=== PATIENT | male | born 1970 | race Caucasian/White ===

== ENCOUNTER 2016-09-23 10:15 | Emergency (ER) | payer OTHER ==
--- NOTE | 2016-09-23 11:33 | UC ---
Abdominal Pain Male HPI - HPI Summary HPI Summary: complaint of diarrhea and abdominal pain 09/16 had a sore throat and headache-09/17 seen by PCP- started antibiotic for otitis media- took 2days worth then stopped 09/17/16 started to have cramping and abdominal pain diarrhea that started on 09/17- frequent episodes 6-8x day not able to eat -drinking fluids and then immediately has to defect and has severe cramping bright yellow stool-denies blood in stool feels constantly nauseated but no vomiting at this time extremely sharp pains throughout his abdomen -RUQ pain after eating and drinking feels feverish and has chills sometimes denies dysuria - History of Current Complaint Chief Complaint: UCGeneralIllness Stated Complaint: DIARRHEA,STOMACH ACHE 6 DAYS Time Seen by Provider: 09/23/16 11:22 Hx Obtained From: Patient - Allergies/Home Medications Allergies/Adverse Reactions: Allergies Allergy/AdvReac Type Severity Reaction Status Date / Time Acetaminophen AdvReac See Comment Verified 09/23/16 11:19 Home Medications: Home Medications Unknown Antibiotic 1 tab PO BID 09/23/16 [History Confirmed 09/23/16] PMH/Surg Hx/FS Hx/Imm Hx Previously Healthy: Yes Cardiovascular History Of: Denies: Congestive Heart Failure Respiratory History Of: Comment Only: COPD - "borderline" GI/ History Of: Denies: Renal Disease - Surgical History Surgical History: None - Family History Known Family History: Positive: None, Diabetes - mother Negative: Cardiac Disease, Hypertension - Social History Occupation: Employed Full-time Lives: With Family Alcohol Use: Occasionally Substance Use Type: None Smoking Status (MU): Former Smoker Type: Cigarettes Amount Used/How Often: 3-4 ppd Length of Time of Smoking/Using Tobacco: 30 yrs When Did the Patient Quit Smoking/Using Tobacco: 7 YRS AGO Review of Systems Constitutional: Fever, Chills, Fatigue Skin: Negative Eyes: Negative ENT: Negative Respiratory: Negative Cardiovascular: Negative Gastrointestinal: Abdominal Pain, Diarrhea Genitourinary: Negative Motor: Negative Neurovascular: Negative Musculoskeletal: Negative Neurological: Negative Psychological: Negative All Other Systems Reviewed And Are Negative: Yes Physical Exam Triage Information Reviewed: Yes Appearance: Ill-Appearing, Pain Distress, Obese Vital Signs: Initial Vital Signs Temp 98.4 F 09/23/16 11:13 Pulse 66 09/23/16 11:13 Resp 18 09/23/16 11:13 BP 125/75 09/23/16 11:13 Pulse Ox 97 09/23/16 11:13 Vital Signs Reviewed: Yes Eyes: Positive: Conjunctiva Clear ENT: Positive: Pharyngeal erythema, TMs normal. Negative: Nasal congestion Neck: Positive: No Lymphadenopathy Respiratory: Positive: Lungs clear, Normal breath sounds, No respiratory distress, No accessory muscle use Cardiovascular: Positive: RRR, No Murmur, Pulses Normal Abdomen Description: Positive: No Organomegaly, Distended, Other: - RUQ tenderness. Negative: CVA Tenderness (R), CVA Tenderness (L), Guarding Bowel Sounds: Positive: Hyperactive Musculoskeletal Exam: Normal Neurological: Positive: Alert Psychological Exam: Normal Skin Exam: Normal Abd Pain Male Course/Dx - Course Course Of Treatment: exam completed. d/t acute abdominal pain, fever and cills , 6 days of diarrhea, will send to higher level of evaluation and care in the emergency department - Differential Dx/Clinical Impression Differential Diagnosis/HQI/PQRI: Gall Bladder Disease, Pancreatitis, Other - diarrhea, c-difficile Provider Diagnoses: RUQ pain, diarrhea - Physician Notification/Consults Discussed Patient Care With: Dr Martino Time Discussed With Above Provider: 11:51 Discharge - Discharge Plan Condition: Stable Disposition: TRANS HIGHER LVL OF CARE FAC
[2016-09-23 11:52] VITALS: BP 132/88
== END 2016-09-23 11:50 | disposition left against medical advice (07) ==
LOC: UCCORT 10:15
DX: R19.7 Diarrhea, unspecified (principal); R10.11 Right upper quadrant pain; Z88.6 Allergy status to analgesic agent
CPT/HCPCS: 99212; G0463

== ENCOUNTER 2016-12-23 09:29 | Emergency (ER) | payer OTHER ==
--- NOTE | 2016-12-23 11:03 | RAD ---
INDICATION: Fall. Rib pain COMPARISON: None TECHNIQUE: Multiple views of the left and right ribs were obtained. FINDINGS: Bones: There is no evidence of acute rib fracture. LUNGS: The lungs are clear. There is no pneumothorax. Pleural spaces: There is no evidence of hemothorax. Other: None IMPRESSION: NO EVIDENCE OF ACUTE RIB FRACTURE
[2016-12-23] MEDS ORDERED: Iohexol 300* (CONTRAST) 10 ML SDV IV ONE (12:09)
--- NOTE | 2016-12-23 13:52 | RAD ---
Indication: Fall on chest wall running. CT of the chest, abdomen and pelvis was performed after oral and IV contrast administration. Inferior thyroid lobes are unremarkable. Small 3 to 5 mm right peritracheal and AP window lymph nodes are noted. No hilar adenopathy is noted. The heart demonstrates no pericardial effusion. The trachea and major bronchi appear patent. The lung salazar demonstrate no evidence of pleural fluid, nodules or masses. No pneumothorax is noted. CT of the abdomen and pelvis demonstrates liver to be normal in size. It is diffusely decreased in density consistent with hepatic steatosis. The gallbladder demonstrates no calcified gallstones. No pericholecystic fluid or wall thickening is identified. The pancreas demonstrates no mass or pancreatic duct dilatation. The spleen is normal in size. Multiple perisplenic collaterals are noted. The possibility of portal hypertension should BE considered. No retroperitoneal or pelvic lymphadenopathy. Urinary bladder is partially collapsed. No free fluid is identified. No pelvic adenopathy. No hernias are noted. The bony structures are unremarkable. IMPRESSION: No free fluid is identified. Hepatic steatosis. Multiple perisplenic collaterals are noted. The possibility of portal hypertension should BE considered. Specifically no rib injury is identified.
[2016-12-23 14:26] VITALS: BP 129/80
--- NOTE | 2017-01-11 12:37 | UC ---
Minor Trauma HPI - HPI Summary HPI Summary: pt fell while running 3 days ago. no severe immediate pain. however, pain became much worse over the days that followed. currently pain is severe at the edges of his sternum. - History of Current Complaint Chief Complaint: UCUpperExtremity Stated Complaint: RIB PAIN-FALL Time Seen by Provider: 12/23/16 10:33 Hx Obtained From: Patient Onset/Duration: Sudden Onset, Lasting Days - 2, Still Present, Worse Since - progressively Severity Initially: Mild Severity Currently: Severe Pain Intensity: 8 Pain Scale Used: 0-10 Numeric Mechanism Of Injury: Blunt Trauma, Fall From A Standing Position Aggravating Factor(s): Coughing, Deep Breaths, Movement Alleviating Factor(s): Nothing Associated Signs And Symptoms: Negative: Loss Of Consciousness, Ecchymosis, Swelling - Allergies/Home Medications Allergies/Adverse Reactions: Allergies Allergy/AdvReac Type Severity Reaction Status Date / Time Acetaminophen AdvReac See Comment Verified 12/23/16 09:59 Home Medications: Home Medications Omeprazole CAP* [Prilosec CAP* 20 MG] 1 tab PO DAILY 12/23/16 [History Confirmed 12/23/16] PMH/Surg Hx/FS Hx/Imm Hx Respiratory History: COPD - Surgical History Surgical History: None - Family History Known Family History: Positive: None, Diabetes - mother Negative: Cardiac Disease, Hypertension - Social History Occupation: Employed Full-time Lives: With Family Alcohol Use: Occasionally Substance Use Type: None Smoking Status (MU): Former Smoker Type: Cigarettes Amount Used/How Often: 3-4 ppd Length of Time of Smoking/Using Tobacco: 30 yrs When Did the Patient Quit Smoking/Using Tobacco: 7 YRS AGO Review of Systems Constitutional: Negative Skin: Negative Eyes: Negative ENT: Negative Respiratory: Negative Cardiovascular: Chest Pain - pleuritc chest wall pain Gastrointestinal: Other - pain over inferior thoracic boarders Genitourinary: Negative Motor: Negative Musculoskeletal: Other: - chest wall pain Neurological: Negative All Other Systems Reviewed And Are Negative: Yes Physical Exam Triage Information Reviewed: Yes Appearance: Well-Appearing, Pain Distress - mod, Obese Vital Signs: Initial Vital Signs Temp 98.3 F 12/23/16 09:55 Pulse 79 12/23/16 09:55 Resp 18 12/23/16 09:55 BP 146/73 12/23/16 09:55 Pulse Ox 98 12/23/16 09:55 Vital Signs Reviewed: Yes Eyes: Positive: Conjunctiva Clear. Negative: Discharge ENT: Positive: Hearing grossly normal. Negative: Muffled/hoarse voice Neck: Positive: Supple, Nontender Respiratory: Positive: Lungs clear, Normal breath sounds, No respiratory distress, No accessory muscle use, Other: - avoiding deep breathing Cardiovascular: Positive: RRR, No Murmur Abdomen Description: Negative: Nontender - tender along costophrnic boarders over spleen, epigastrum Bowel Sounds: Positive: Present Musculoskeletal Exam: Normal Musculoskeletal: Positive: Other: - tender to palpation over all anterior rib Neurological Exam: Normal Neurological: Positive: Alert, Muscle Tone Normal Psychological: Positive: Normal Response To Family, Age Appropriate Behavior Skin Exam: Normal Diagnostics - Radiology No standard instances Xray Interpretation: No Acute Changes - rib xray, ct chest/abd/pelvis(fatty liver seen) Radiology Interpretation Completed By: Radiologist - EKG Cardiac Rhythm: Sinus: Normal Ectopy: None ST Segment: Normal Minor Trauma Course/Dx - Course Course Of Treatment: Htn noted. Elevated bp likely d/t pt current condition - Differential Dx/Diagnosis Differential Diagnosis/HQI/PQRI: Contusion(s), Fracture, Hematoma(s), Laceration (s), Sprain Provider Diagnoses: blaunt chest trauma, constochondritis, elevated bp without dx of htn Discharge - Discharge Plan Condition: Stable Disposition: HOME Prescriptions: Naproxen TAB* [Naprosyn 250 mg TAB*] 500 mg PO BID PRN #20 tab PRN Reason: Pain oxyCODONE TAB* [Roxycodone TAB 5 mg*] 5 mg PO Q6H PRN #14 tab MDD 4 tabs PRN Reason: Pain Patient Education Materials: Costochondritis (ED), Blunt Chest Trauma (ED) Referrals: Non Staff,Doctor [Primary Care Provider] - Additional Instructions: ORAL NARCOTIC MEDICATION: You have been given a prescription for pain control. This medication is a narcotic. It's best taken with food, as nausea can result if taken on an empty stomach. Don't operate machinery or drive within six hours of taking this medication. Do not combine this medicine with alcohol, or with any medication which can cause sedation (such as cold tablets or sleeping pills) unless you get permission from the physician. Narcotics tend to cause constipation. If possible, drink plenty of fluids and eat a diet high in fiber and fruits. ANTI-INFLAMMATORY MEDICATION: You have received a prescription for an antiinflammatory agent. This is an excellent, safe drug for pain control. In addition, it has potent antiinflammatory effects which are beneficial, especially in the treatment of injuries, arthritis, or tendonitis. It's best to take this medicine with food. Persons with ulcer disease or allergy to aspirin should notify their physician of this before taking this drug. Take the medication exactly as prescribed. Don't take additional doses unless instructed to do so by your doctor. If you develop wheezing, shortness of breath, hives, faintness, stomach pain, vomiting, or dark black stools, return for re-evaluation at once. FOLLOW UP IT IS IMPORTANT THAT YOU FOLLOW UP WITH YOUR PCP BY THE END OF THE WEEK.
== END 2016-12-23 14:41 | disposition home or self-care (01) ==
LOC: UCCORT 09:29
DX: S29.8XXA Other specified injuries of thorax, initial encounter (principal); W18.30XA Fall on same level, unspecified, initial encounter; Y93.02 Activity, running; Y92.9 Unspecified place or not applicable; M94.0 Chondrocostal junction syndrome [Tietze]; R03.0 Elevated blood-pressure reading, without diagnosis of hypertension; J44.9 Chronic obstructive pulmonary disease, unspecified; E66.9 Obesity, unspecified; Z88.6 Allergy status to analgesic agent; Z87.891 Personal history of nicotine dependence
CPT/HCPCS: 71110; 71260; 74177; 93005; 99212; G0463; Q9967

== ENCOUNTER 2017-03-05 11:05 | Emergency (ER) | payer OTHER | END 2017-03-05 12:27 | disposition left against medical advice (07) | LOC: UCCORT 11:05 | DX: M54.9 Dorsalgia, unspecified (principal) ==

== ENCOUNTER 2017-07-27 13:04 | Emergency (ER) | payer OTHER ==
[2017-07-27 14:48] VITALS: BP 140/94
--- NOTE | 2017-07-27 14:50 | UC ---
UC General HPI - HPI Summary HPI Summary: PT IS C/O PAIN TO THE TOP MID TO OUTER R FOOT X 1 WEEK. THIS AM IT IS MUCH WORSE. HE NOTES IT IS PINK AND SWOLLEN. [place] HX INJURY AND GOUT. DID DRINK "A COUPLE OF BEERS LAST PM WHICH HE HAD NOT DONE IN THE PAST WEEK. NO OTHER JOINT COMPLAINTS. - History of Current Complaint Stated Complaint: RT FOOT COMPLAINT Time Seen by Provider: 07/27/17 14:33 Hx Obtained From: Patient, Family/Fun House Attendant Onset/Duration: Gradual Onset Timing: Constant Aggravating: WEIGHT ON THE FOOT Alleviating: NON WEIGHT ON FOOT - Allergy/Home Medications Allergies/Adverse Reactions: Allergies Allergy/AdvReac Type Severity Reaction Status Date / Time acetaminophen Allergy Enlarged Verified 07/27/17 14:34 liver Home Medications: Home Medications Furosemide TAB* [Lasix TAB*] 40 mg PO DAILY 07/27/17 [History Confirmed 07/27/17 ] PMH/Surg Hx/FS Hx/Imm Hx - Additional Past Medical History Additional PMH: CIRRHOSIS, FATTY LIVER, CHRONIC MILD LEG EDEMA Endocrine History: Dyslipidemia Cardiovascular History: Hypertension GI/ History: Gastroesophageal Reflux - Surgical History Surgical History: None - Family History Known Family History: Positive: None, Diabetes - mother Negative: Cardiac Disease, Hypertension - Social History Lives: With Family Alcohol Use: Occasionally Substance Use Type: None Smoking Status (MU): Former Smoker Type: Cigarettes Amount Used/How Often: 3-4 ppd Length of Time of Smoking/Using Tobacco: 30 yrs When Did the Patient Quit Smoking/Using Tobacco: 7 YRS AGO Review of Systems Constitutional: Negative Skin: Negative Eyes: Negative ENT: Negative Respiratory: Negative Cardiovascular: Negative Gastrointestinal: Negative Genitourinary: Negative Motor: Negative Neurovascular: Negative Musculoskeletal: Other: - PAIN/SWELLING R FOOT Neurological: Negative Psychological: Negative Is Patient Immunocompromised?: No All Other Systems Reviewed And Are Negative: Yes Physical Exam Triage Information Reviewed: Yes Appearance: Well-Appearing Vital Signs Reviewed: Yes Eyes: Positive: Conjunctiva Clear ENT: Positive: Normal ENT inspection Neck: Positive: Supple Respiratory: Positive: Lungs clear, Normal breath sounds Cardiovascular: Positive: RRR, No Murmur Abdomen Description: Positive: Nontender, No Organomegaly, Soft Bowel Sounds: Positive: Present Musculoskeletal: Positive: Other: - Mild swelling BLE's. RLE: hip, knee, ankle non tender. R dorsal foot mild swelling compared to L plus warm to touch and tender. Slight pink noted as well. s/v/m intact to the foot. Neurological: Positive: Alert Psychological: Positive: Age Appropriate Behavior Skin Exam: Normal Diagnostics - Radiology No standard instances Xray Interpretation: No Acute Changes Radiology Interpretation Completed By: Radiologist Course/Dx - Course Course Of Treatment: non toxic, no fx or dislocation, no osteomyelitis. will need to cover forpossible skin infecton and possible gout - Differential Dx - Multi-Symptom Provider Diagnoses: Acute nontraumatic R foot pain. possible gout or skin infection Discharge - Discharge Plan Condition: Stable Disposition: HOME Prescriptions: Cephalexin CAP* [Keflex CAP*] 500 mg PO TID #30 cap Indomethacin CAP* [Indocin CAP*] 50 mg PO TID 3 Days #10 cap Patient Education Materials: Gout (ED), Cellulitis (ED) Referrals: Kristian Simmons [Primary Care Provider] - 2 Days
--- NOTE | 2017-07-27 16:05 | RAD ---
INDICATION: 3-4 weeks of mid foot metatarsal pain COMPARISON: None. TECHNIQUE: 3 views of the right foot were obtained. FINDINGS: The adequately corticated bones are properly aligned. Joint spaces appear maintained. No fracture, dislocation or focal bony abnormality is seen. IMPRESSION: Normal radiograph of the right foot. If the patient's symptoms persist, follow-up imaging is recommended.
== END 2017-07-27 15:31 | disposition home or self-care (01) ==
LOC: UCCORT 13:04
DX: M79.671 Pain in right foot (principal); Z88.8 Allergy status to other drugs, medicaments and biological substances; Z87.891 Personal history of nicotine dependence
CPT/HCPCS: 99213; G0463

== ENCOUNTER 2018-02-11 08:24 | Emergency (ER) | payer OTHER ==
[2018-02-11 08:57] VITALS: BP 116/71
--- NOTE | 2018-02-11 09:32 | UC ---
Upper Extremity HPI - HPI Summary HPI Summary: 39-year-old male comes in here with a swollen red left arm. Patient was recently admitted in the hospital and had an IV in that arm. Patient reports the left arm started hurting yesterday while the IV was and it. The IV was removed he was discharged from the hospital the arm continues to hurt and now this morning if there is redness in the area. Movement makes the pain worse the pain is moderate to severe. - History of Current Complaint Chief Complaint: UCGeneralIllness Stated Complaint: LEFT ARM PAIN FROM I.V.SITE Time Seen by Provider: 02/11/18 09:19 Pain Intensity: 10 - Allergies/Home Medications Allergies/Adverse Reactions: Allergies Allergy/AdvReac Type Severity Reaction Status Date / Time acetaminophen Allergy Enlarged Verified 02/11/18 08:52 liver ibuprofen Allergy Stomach Verified 02/11/18 08:52 Cramps Home Medications: Home Medications Iron 90 mg PO DAILY 02/11/18 [History Confirmed 02/11/18] Nadolol TAB* [Corgard TAB*] 20 mg PO DAILY 02/11/18 [History Confirmed 02/11/18] PMH/Surg Hx/FS Hx/Imm Hx - Additional Past Medical History Additional PMH: Recent Virchow's pain rupture in his abdomen which required multiple blood transfusions - Surgical History Surgical History: None - Family History Known Family History: Positive: None, Diabetes - mother Negative: Cardiac Disease, Hypertension - Social History Alcohol Use: None Alcohol Amount: weekends Substance Use Type: None Smoking Status (MU): Former Smoker Type: Cigarettes Amount Used/How Often: 3-4 ppd Length of Time of Smoking/Using Tobacco: 30 yrs When Did the Patient Quit Smoking/Using Tobacco: 9 YRS AGO Review of Systems Constitutional: Negative Skin: Other - SEE HPI Eyes: Negative ENT: Negative Respiratory: Shortness Of Breath Cardiovascular: Negative Gastrointestinal: Negative Motor: Negative Neurovascular: Negative Musculoskeletal: Negative Neurological: Negative Psychological: Negative Is Patient Immunocompromised?: No All Other Systems Reviewed And Are Negative: Yes Physical Exam Triage Information Reviewed: Yes Appearance: Well-Appearing, No Pain Distress, Well-Nourished Vital Signs: Initial Vital Signs Temp 98.4 F 02/11/18 08:49 Pulse 65 02/11/18 08:49 Resp 16 02/11/18 08:49 BP 116/71 02/11/18 08:49 Pulse Ox 100 10/03/18 08:49 Vital Signs Reviewed: Yes Eye Exam: Normal Eyes: Positive: Conjunctiva Clear Neck exam: Normal Neck: Positive: Supple Respiratory Exam: Normal Respiratory: Positive: No respiratory distress, No accessory muscle use Musculoskeletal: Positive: Other: - The left antecubital area is swollen and tender to palpation and there is erythema. There is normal capillary refill distally wrist and hand have normal range of motion patient does not bend his elbow secondary to the swelling. Neurological Exam: Normal Neurological: Positive: Alert, Muscle Tone Normal Psychological Exam: Normal Psychological: Positive: Normal Response To Family, Age Appropriate Behavior Skin: Positive: Other - Left arm has erythema in the antecubital area Upper Extremity Course/Dx - Course Course Of Treatment: Cellulitis is a possibility as are a blood clot in the arm. Due to the complexity of this patient's medical history and this condition I am recommending he go to the emergency department for further evaluation and care. The patient and his family agreed. - Differential Dx/Diagnosis Provider Diagnoses: Left arm swelling Discharge - Sign-Out/Discharge Documenting (check all that apply): Patient Departure All imaging exams completed and their final reports reviewed: No Studies - Discharge Plan Condition: Stable Disposition: HOME-RECOMMEND TO ED Patient Education Materials: Arm Pain (ED) Referrals: Emily MAKI,Kristian Lopez [Primary Care Provider] - Additional Instructions: GO DIRECTLY TO THE EMERGENCY DEPARTMENT FOR FURTHER EVALUATION. - Billing Disposition and Condition Condition: STABLE Disposition: Home-Recommend to ED
== END 2018-02-11 09:39 | disposition home health service (06) ==
LOC: UCCORT 08:24
DX: M79.89 Other specified soft tissue disorders (principal); Z87.891 Personal history of nicotine dependence; Z88.6 Allergy status to analgesic agent
CPT/HCPCS: 99212; G0463

== ENCOUNTER 2018-04-11 11:29 | Emergency (ER) | payer OTHER ==
[2018-04-11 11:46] VITALS: BP 120/57
--- NOTE | 2018-04-11 12:20 | UC ---
FLU HPI - HPI Summary HPI Summary: 47 year old male presents with onset of fever (101 F), nasal congestion, right ear pain, "muffled" hearing in right ear, productive cough for green sputum, intermittent vertigo, nausea, vomiting, and diarrhea. States has had approximately 3 episodes of vomiting, last approximately 10:30 this morning. Reports 3-4 episodes of loose stool. Denies chest pain, palpitations, lightheadedness, shortness of breath, or abdominal pain. Did not receive flu shot this year. - History of Current Complaint Chief Complaint: UCGeneralIllness Stated Complaint: COUGH/VOMITING/FEVER/EAR ACHE Time Seen by Provider: 04/11/18 12:07 Hx Obtained From: Patient Severity Initially: Moderate Pain Intensity: 7 Associated Signs & Symptoms: Positive: Fever, Cough, Nasal Congestion, Vomiting , Diarrhea - Allergy/Home Medications Allergies/Adverse Reactions: Allergies Allergy/AdvReac Type Severity Reaction Status Date / Time acetaminophen Allergy Enlarged Verified 04/11/18 11:44 liver ibuprofen Allergy Stomach Verified 04/11/18 11:44 Cramps Home Medications: Home Medications Atorvastatin* [Lipitor*] 20 mg PO 1700 04/11/18 [History Confirmed 04/11/18] Dextromethorphan Hb/Doxylamine [Gnp Night Time Cough] 1 dose PO ONCE PRN [History Confirmed 04/11/18] PMH/Surg Hx/FS Hx/Imm Hx - Additional Past Medical History Additional PMH: Iron deficiency anemia Endocrine History: Dyslipidemia GI/ History: Gastroesophageal Reflux, Other - Liver disease of unknown origin - Surgical History Surgical History: None - Family History Known Family History: Positive: Diabetes - mother Negative: Cardiac Disease, Hypertension - Social History Occupation: Employed Full-time Lives: With Family Alcohol Use: None Alcohol Amount: weekends Substance Use Type: None Smoking Status (MU): Former Smoker Type: Cigarettes Amount Used/How Often: 3-4 ppd Length of Time of Smoking/Using Tobacco: 30 yrs When Did the Patient Quit Smoking/Using Tobacco: 10 YRS AGO Review of Systems All Other Systems Reviewed And Are Negative: Yes Constitutional: Positive: Fever, Chills, Fatigue Skin: Negative: Rash Eyes: Negative: Drainage, Eye Redness ENT: Positive: Ear Ache, Nasal Discharge, Sinus Congestion. Negative: Sore Throat Respiratory: Positive: Cough. Negative: Shortness Of Breath Cardiovascular: Negative: Palpitations, Chest Pain Gastrointestinal: Positive: Vomiting, Diarrhea, Nausea. Negative: Abdominal Pain Is Patient Immunocompromised?: No Physical Exam - Summary Physical Exam Summary: GENERAL APPEARANCE: Well developed, obese, alert and cooperative, and appears to be in no acute distress. EYES: Conjunctiva clear without discharge. EARS: Left external auditory canal with moderate amount of cerumen. TM partially obscured but no erythema noted. Right external auditory canal with complete cerumen impaction. NOSE: Nasal congestion. No discharge. THROAT: Oral cavity and pharynx normal. Tonsils 1+ without exudate. Small tonsilith noted to right tonsil. Teeth and gingiva in good general condition. NECK: Neck supple, non-tender without lymphadenopathy. CARDIAC: Normal S1 and S2. No S3, S4 or murmurs. Rhythm is regular. There is no peripheral edema, cyanosis or pallor. Extremities are warm and well perfused. Capillary refill is less than 2 seconds. LUNGS: Clear to auscultation and percussion without rales, rhonchi, wheezing or diminished breath sounds. No cough observed ABDOMEN: Positive bowel sounds. Soft, nondistended, nontender. No guarding or rebound. No masses or hepatosplenomegally appreciated. MUSKULOSKELETAL: ROM intact to all extremities. No joint erythema or tenderness. Normal muscular development. Normal gait. NEUROLOGICAL: CN II-XII intact. Strength and sensation symmetric and intact throughout. Reflexes 2+ throughout. Cerebellar testing normal. SKIN: Skin normal color, texture and turgor with no lesions or eruptions. Triage Information Reviewed: Yes Vital Signs: Initial Vital Signs Temp 97.9 F 04/11/18 11:40 Pulse 67 04/11/18 11:40 Resp 18 04/11/18 11:40 BP 120/57 04/11/18 11:40 Pulse Ox 97 04/11/18 11:40 Vital Signs Reviewed: Yes Diagnostics - Laboratory Diagnostic Studies Completed/Ordered: Rapid flu negative Re-Evaluation - Re-Evaluation First Eval Re-Evaluation Time: 12:45 Comment: Post ear irrigation patient is reporting improved hearing in the right ear. Exam reveals right TM erythema with effusion. Left TM opaque with good cone of light. Flu Course/Dx - Course Course Of Treatment: 47 year old male presents with onset of fever (101 F), nasal congestion, right ear pain, "muffled" hearing in right ear, productive cough for green sputum, intermittent vertigo, nausea, vomiting, and diarrhea. States has had approximately 3 episodes of vomiting, last approximately 10:30 this morning. Reports 3-4 episodes of loose stool. Denies chest pain, palpitations, lightheadedness, shortness of breath, or abdominal pain. Afebrile. VSS. Inital exam unremarkable except for nasal congestion, right cerumen impaction, and right tonsilith. The cerumen impaction was cleared with irrigation. Re-evaluation showed an erythematous right TM with effusion. Will treat for URI with right otitis media with 10 day course of amoxicilin 875 mg BID as well as symptomatic treatment. Warning symptoms were reviewed with patient. Verbalizes understanding and agrees with POC. - Differential Dx/Diagnosis Provider Diagnosis: Right otitis media with effusion, URI with cough and congestion Discharge - Sign-Out/Discharge Documenting (check all that apply): Patient Departure All imaging exams completed and their final reports reviewed: No Studies - Discharge Plan Condition: Stable Disposition: HOME Prescriptions: Amoxicillin PO (*) [Amoxicillin 875 MG (*)] 875 mg PO BID #20 tab Fluticasone NASAL SPRAY 50MCG* [Flonase NASAL SPRAY 50MCG*] 2 spray BOTH NARES DAILY #1 btl Patient Education Materials: Ear Infection (ED), Upper Respiratory Infection ( ED), Acute Nausea and Vomiting (ED), Acute Diarrhea (ED) Referrals: Kristian Simmons [Primary Care Provider] - 7 Days () Additional Instructions: Your history and exam are consistent with a upper respiratory infection and your right ear appears to be infected. We will start you on an antibiotic to treat this infection. Start amoxicillin 875 mg 1 tab every 12 hours for 10 days. Take with food to avoid upset stomach. Be sure to complete the entire course of the antibiotic even if you are feeling better. Drink plenty of fluids to avoid dehydration. You should avoid beverages with caffeine or alcohol as these can worsen dehydration. Use a saline rinse kit such as Neti Pot or NeilMed at least twice a day to help thin secretions and promote drainage of the sinuses. Use fluticasone (Flonase) nasal spray 2 sprays each nostril once daily. Take over the counter ibuprofen (Advil, Motrin) according to directions as needed for pain or fever. Use salt water gargles several times a day if you have a sore throat. You may also use Chloraseptic spray or Cepacol lonzenges according to directions which contain a numbing medication and can provide some temporary relief from your sore throat. Follow up with your primary care provider in 7 days for recheck. Seek immediate medical attention in the emergency room if you have fever greater than 100.5 F despite taking acetaminophen or ibuprofen, have chest pain , difficulty breathing, are unable to swallow, or have any worsening of symptoms. - Billing Disposition and Condition Condition: STABLE Disposition: Home
== END 2018-04-11 13:07 | disposition home or self-care (01) ==
LOC: UCCORT 11:29
DX: H65.91 Unspecified nonsuppurative otitis media, right ear (principal); J06.9 Acute upper respiratory infection, unspecified; R05 Cough; J34.89 Other specified disorders of nose and nasal sinuses; Z87.891 Personal history of nicotine dependence; Z88.6 Allergy status to analgesic agent
CPT/HCPCS: 99213; G0463

== ENCOUNTER 2018-08-15 14:34 | Emergency (ER) | payer OTHER | END 2018-08-15 16:02 | disposition left against medical advice (07) | LOC: UCCORT 14:34 | DX: Z53.21 Procedure and treatment not carried out due to patient leaving prior to being seen by health care provider (principal) ==

== ENCOUNTER 2018-09-01 17:32 | Emergency (ER) | payer OTHER ==
[2018-09-01 17:43] VITALS: BP 135/75
[2018-09-01] MEDS ORDERED: Ondansetron ODT TAB* 4 MG PO ONE (18:07)
--- NOTE | 2018-09-01 18:17 | UC ---
UC General HPI - HPI Summary HPI Summary: 48-year-old male comes in with a chief complaint of dizziness and nausea and vomiting. Patient believes is because he got bit by psych this morning. He had put in the right hand by a milk snake. Patient reports that he knows that it is not a person the snake any seen these many times before his been bit by them before. He says usually gets nauseous after being bit by them but his temperature thrown out before. Denies any chest pain or shortness of breath. The area where the bite occurred is swollen but not erythematous. - History of Current Complaint Chief Complaint: UCBiteInjury Stated Complaint: SNAKE BITE,DIZZY,VOMITING Time Seen by Provider: 09/01/18 17:52 Pain Intensity: 0 - Allergy/Home Medications Allergies/Adverse Reactions: Allergies Allergy/AdvReac Type Severity Reaction Status Date / Time acetaminophen Allergy Enlarged Verified 09/01/18 17:36 liver ibuprofen Allergy Stomach Verified 09/01/18 17:36 Cramps Home Medications: Home Medications Iron 18 mg PO BID 09/01/18 [History Confirmed 09/01/18] PMH/Surg Hx/FS Hx/Imm Hx Previously Healthy: Yes GI/ History: Gastroesophageal Reflux - Surgical History Surgical History: None Surgery Procedure, Year, and Place: liver bx - Family History Known Family History: Positive: None, Diabetes - mother Negative: Cardiac Disease, Hypertension - Social History Alcohol Use: weekends Alcohol Amount: weekends Substance Use Type: None Smoking Status (MU): Former Smoker Type: Cigarettes Amount Used/How Often: 3-4 ppd Length of Time of Smoking/Using Tobacco: 30 yrs When Did the Patient Quit Smoking/Using Tobacco: 10 YRS AGO Review of Systems All Other Systems Reviewed And Are Negative: Yes Constitutional: Positive: Other - dizzy Skin: Positive: Other - see hpi ENT: Positive: Negative Respiratory: Positive: Negative Cardiovascular: Positive: Negative Gastrointestinal: Positive: Vomiting, Nausea Motor: Positive: Negative Neurovascular: Positive: Negative Musculoskeletal: Positive: Negative Neurological: Positive: Negative Psychological: Positive: Negative Is Patient Immunocompromised?: No Physical Exam Triage Information Reviewed: Yes Appearance: Well-Appearing, No Pain Distress, Well-Nourished Vital Signs: Initial Vital Signs Temp 98.6 F 09/01/18 17:38 Pulse 78 09/01/18 17:38 Resp 18 09/01/18 17:38 BP 135/75 09/01/18 17:38 Pulse Ox 96 09/01/18 17:38 Vital Signs Reviewed: Yes Eye Exam: Normal Eyes: Positive: Conjunctiva Clear, Other: - perrla/eomi Neck: Positive: Supple Respiratory: Positive: Lungs clear, Normal breath sounds, No respiratory distress Cardiovascular: Positive: RRR Abdomen Description: Positive: Nontender, Soft Bowel Sounds: Positive: Present Musculoskeletal: Positive: Other: - The right hand has 2 puncture wounds on the dorsum between the thumb and index finger. The area is swollen and tender to palpation. There is no erythema. Swelling does not extend farther than the wrist. Some decreased range of motion of the index finger secondary to swelling. It is not hot to touch there is no streaking. Normal sensation normal capillary refill. Normal radial pulse. The rest the arm is full range of motion and is nontender to palpation. Neurological Exam: Normal Neurological: Positive: Alert, Muscle Tone Normal Psychological Exam: Normal Psychological: Positive: Age Appropriate Behavior Skin: Positive: Other - The right hand has 2 puncture wounds on the dorsum between the thumb and index finger. The area is swollen and tender to palpation. There is no erythema. Swelling does not extend farther than the wrist. Some decreased range of motion of the index finger secondary to swelling. It is not hot to touch there is no streaking. Normal sensation normal capillary refill. Normal radial pulse. The rest the arm is full range of motion and is nontender to palpation. Diagnostics - EKG Cardiac Rate: NL - at 1805 Cardiac Rhythm: Sinus: Normal - 71bpm Ectopy: None ST Segment: Normal Course/Dx - Course Course Of Treatment: I discussed the patient's case with poison control. Patient is up-to-date on his tetanus shot. He does have swelling at the site there is no erythema or heat to the area at this time. With the swelling a he does have some difficulty closing his fingers completely. The overall plan is to have him on doxycycline for any potential infection. At this time it appears this take as nonpoisonous. I did let the patient other than he got worse she is to go directly to the emergency department. - Diagnoses Provider Diagnosis: Bite, snake, non-venomous Discharge - Sign-Out/Discharge Documenting (check all that apply): Patient Departure All imaging exams completed and their final reports reviewed: No Studies - Discharge Plan Condition: Stable Disposition: HOME Prescriptions: DOXYcycline CAP(*) [DOXYcycline 100MG CAP(*)] 100 mg PO BID #20 cap Ondansetron ODT TAB* [Zofran 4 MG Odt TAB*] 4 mg PO Q6H PRN #10 tab.odt PRN Reason: Nausea Patient Education Materials: Snake Bite (ED) Forms: *Work Release Referrals: Emily MAKI,Kristian Lopez [Primary Care Provider] - Additional Instructions: FOLLOW UP WITH YOUR DOCTOR IF NOT COMPLETELY IMPROVED. GO TO THE EMERGENCY DEPARTMENT IF YOUR CONDITION WORSENS OR ANY QUESTIONS OR CONCERNS. - Billing Disposition and Condition Condition: STABLE Disposition: Home
== END 2018-09-01 18:58 | disposition home or self-care (01) ==
LOC: UCCORT 17:32
DX: S61.451A Open bite of right hand, initial encounter (principal); R42 Dizziness and giddiness; R11.2 Nausea with vomiting, unspecified; Z88.8 Allergy status to other drugs, medicaments and biological substances; Z87.891 Personal history of nicotine dependence; Y92.9 Unspecified place or not applicable; W59.11XA Bitten by nonvenomous snake, initial encounter
CPT/HCPCS: 93005; 99212; A9270-GY; G0463

== ENCOUNTER 2019-02-17 16:28 | Emergency (ER) | payer BC, OTHER ==
[2019-02-17 17:13] VITALS: BP 138/80
[2019-02-17] MEDS ORDERED: Lidocaine 2% PF * 5 ML VIAL INJ ONE (17:38)
--- NOTE | 2019-02-17 17:44 | UC ---
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 He states it was spurting blood - History Of Current Complaint Chief Complaint: UCLaceration Stated Complaint: FINGER LAC Time Seen by Provider: 02/17/19 17:12 Hx Obtained From: Patient Laceration Location: Finger - LIF Onset/Duration: Sudden Onset Severity: Severe Pain Intensity: 8 Pain Scale Used: 0-10 Numeric Aggravating Factors: Other: - touch Hands: 1 - deep flap laceration, N/V intact - Allergies/Home Medications Allergies/Adverse Reactions: Allergies Allergy/AdvReac Type Severity Reaction Status Date / Time acetaminophen Allergy Enlarged Verified 02/17/19 17:11 liver ibuprofen AdvReac Stomach Verified 02/17/19 17:11 Cramps Home Medications: Home Medications Furosemide 120 mg PO BID 02/17/19 [History Confirmed 02/17/19] Omeprazole CAP (NF) [Prilosec CAP* 20 MG] 20 mg PO BID 02/17/19 [History Confirmed 02/17/19] PMH/Surg Hx/FS Hx/Imm Hx Previously Healthy: Yes Endocrine History: Diabetes - Pre Cardiovascular History: Hypertension GI/ History: Other - cirrhosis - Surgical History Surgical History: None Surgery Procedure, Year, and Place: liver bx - Family History Known Family History: Positive: Diabetes - mother, Non-Contributory Negative: Cardiac Disease, Hypertension - Social History Alcohol Use: Weekly Alcohol Amount: weekends Substance Use Type: None Smoking Status (MU): Former Smoker Type: Cigarettes Amount Used/How Often: 3-4 ppd Length of Time of Smoking/Using Tobacco: 30 yrs When Did the Patient Quit Smoking/Using Tobacco: 10 YRS AGO - Immunization History Most Recent Tetanus Shot: fall 2017 Review of Systems All Other Systems Reviewed And Are Negative: Yes Constitutional: Positive: Negative Skin: Positive: Negative Eyes: Positive: Negative ENT: Positive: Negative Respiratory: Positive: Negative Cardiovascular: Positive: Negative Gastrointestinal: Positive: Negative Genitourinary: Positive: Negative Motor: Positive: Negative Neurovascular: Positive: Negative Musculoskeletal: Positive: Negative Neurological: Positive: Negative Psychological: Positive: Negative Physical Exam Triage Information Reviewed: Yes Appearance: Well-Appearing, No Pain Distress, Well-Nourished Vital Signs: Initial Vital Signs Temp 99.9 F 02/17/19 17:09 Pulse 76 02/17/19 17:09 Resp 22 02/17/19 17:09 BP 138/80 02/17/19 17:09 Pulse Ox 98 02/17/19 17:09 Vital Signs Reviewed: Yes Eyes: Positive: Conjunctiva Clear ENT: Positive: Normal ENT inspection. Negative: Nasal congestion, Nasal drainage, Trismus, Muffled voice, Hoarse voice Dental: Negative: Abscess @ Neck: Positive: Supple, Nontender Respiratory: Positive: Lungs clear, Normal breath sounds, No respiratory distress, No accessory muscle use Cardiovascular: Positive: RRR, No Murmur Musculoskeletal: Positive: ROM Intact, No Edema Neurological: Positive: Alert Psychological Exam: Normal Skin Exam: Other - laceration left index finger Procedures - Sedation Patient Received Moderate/Deep Sedation with Procedure: No Laceration Repair - Laceration Repair 1 Description: Linear - flap Laceration Size After Repair: Length (cm) - 1.4, Width (mm) - 1, Depth (mm) - 3 Modified For Repair: No Type Injection: Digital Anesthesia Used: 2.0% Lido Cleansing Completed Via Routine Prep: Yes Irrigation With Pressure Irrigation Device: Yes Closure Material: Sutures Closure Method: Single Layer Suture Of: Skin Suture Type: Nylon - 3 5-0 nylon Laceration Course/Dx - Diagnosis Provider Diagnosis: Laceration of left index finger Discharge ED - Sign-Out/Discharge Documenting (check all that apply): Patient Departure All imaging exams completed and their final reports reviewed: No Studies - Discharge Plan Condition: Stable Disposition: HOME Patient Education Materials: Care For Your Stitches (ED) Forms: *Work Release Additional Instructions: keep dressing on for 24 hours then gently clean twice daily with soap and water antibiotic oint and bandaid recheck for concerns of infection sutures out in about 7 or 8 days - Billing Disposition and Condition Condition: STABLE Disposition: Home
[2019-02-17] MEDS ORDERED: Cephalexin CAP* 500 MG PO ONE (18:26)
== END 2019-02-17 18:42 | disposition home or self-care (01) ==
LOC: UCCORT 16:28
DX: S61.211A Laceration without foreign body of left index finger without damage to nail, initial encounter (principal); W45.8XXA Other foreign body or object entering through skin, initial encounter; Y92.89 Other specified places as the place of occurrence of the external cause; Y99.0 Civilian activity done for income or pay; R73.03 Prediabetes; I10 Essential (primary) hypertension; Z88.6 Allergy status to analgesic agent; Z87.891 Personal history of nicotine dependence
CPT/HCPCS: 12001; 99211; A9270-GY; G0463

== ENCOUNTER 2019-02-25 16:02 | Emergency (ER) | payer OTHER ==
[2019-02-25 16:50] VITALS: BP 118/71
--- NOTE | 2019-02-25 17:38 | UC ---
Skin Complaint HPI - HPI Summary HPI Summary: Patient is a 48yo male presenting to have 3 stitches removed from his left finger index finger. He states stitches were placed on 02/18/19. Patient denies bleeding, drainage, warmth, redness, decreased range of motion. Patient denies fever and chills. He notes mild tenderness of the finger still but states that he was told his nerve was involved with the laceration. - History of Current Complaint Chief Complaint: UCLaceration Stated Complaint: WC-STITCHES REMOVED-DONE HERE Hx Obtained From: Patient Pain Intensity: 5 Pain Scale Used: 0-10 Numeric - Allergy/Home Medications Allergies/Adverse Reactions: Allergies Allergy/AdvReac Type Severity Reaction Status Date / Time acetaminophen Allergy Enlarged Verified 02/25/19 16:49 liver ibuprofen AdvReac Stomach Verified 02/25/19 16:49 Cramps PMH/Surg Hx/FS Hx/Imm Hx - Surgical History Surgical History: None Surgery Procedure, Year, and Place: liver bx - Family History Known Family History: Positive: Diabetes - mother, Non-Contributory Negative: Cardiac Disease, Hypertension - Social History Alcohol Use: Weekly Alcohol Amount: weekends Substance Use Type: None Smoking Status (MU): Former Smoker Type: Cigarettes Amount Used/How Often: 3-4 ppd Length of Time of Smoking/Using Tobacco: 3/4 PPD x 30 Years When Did the Patient Quit Smoking/Using Tobacco: ~2007 - Immunization History Most Recent Tetanus Shot: fall 2017 Review of Systems All Other Systems Reviewed And Are Negative: Yes Constitutional: Positive: Negative. Negative: Fever, Chills Respiratory: Positive: Negative Cardiovascular: Positive: Negative Gastrointestinal: Positive: Negative. Negative: Vomiting, Nausea Musculoskeletal: Positive: Arthralgia. Negative: Decreased ROM, Edema Neurological: Positive: Negative Physical Exam Triage Information Reviewed: Yes Appearance: Well-Appearing, No Pain Distress, Well-Nourished, Obese Vital Signs: Initial Vital Signs Temp 98.7 F 02/25/19 16:45 Pulse 73 02/25/19 16:45 Resp 16 02/25/19 16:45 BP 118/71 02/25/19 16:45 Pulse Ox 97 02/25/19 16:45 Vital Signs Reviewed: Yes Eyes: Positive: Conjunctiva Clear ENT: Positive: Hearing grossly normal Neck: Positive: Supple Respiratory: Positive: No respiratory distress Cardiovascular: Positive: Pulses Normal, Brisk Capillary Refill Musculoskeletal Exam: Normal Musculoskeletal: Positive: Strength Intact, ROM Intact, No Edema, Other: - tenderness to palpation of distal phalanx of the left index finger Neurological: Positive: Alert Psychological: Positive: Age Appropriate Behavior Skin: Positive: Other - healed laceration of distal phalanx of left index finger. no drainage or fluctuance. no erythma. no warmth. Course/Dx - Course Course Of Treatment: Removed 3 sutures from left index finger. no signs of infection. Finger with full ROM and strength, but finger still operator whiskey. Patient states the initial injury was worker's comp so I instructed patient to follow up with Dr. Red for further evaluation if pain in finger persists. Patient voiced understanding and agreed to the treatment plan. - Diagnoses Provider Diagnosis: Visit for suture removal Discharge ED - Sign-Out/Discharge Documenting (check all that apply): Patient Departure All imaging exams completed and their final reports reviewed: No Studies - Discharge Plan Condition: Stable Disposition: HOME Referrals: Joss Red MD [Medical Doctor] - If Needed Additional Instructions: As discussed, you had 3 stitches removed today. Follow up with Dr. Red below if you experience persistent pain in your finger. Return or go to the emergency room if you experience severe pain in the finger, swelling, drainage, bleeding, redness, warmth, the wound opens again, or you are unable to move the finger. - Billing Disposition and Condition Condition: STABLE Disposition: Home
== END 2019-02-25 17:48 | disposition home or self-care (01) ==
LOC: UCCORT 16:02
DX: S61.211D Laceration without foreign body of left index finger without damage to nail, subsequent encounter (principal); X58.XXXD Exposure to other specified factors, subsequent encounter; Z88.6 Allergy status to analgesic agent; Z87.891 Personal history of nicotine dependence